=== PATIENT | female | born 1985 | race African-American/Black ===

== ENCOUNTER 2021-11-29 09:44 | Outpatient (REF) | payer OTHER, SELFPAY ==
[2021-11-29 10:25] LABS: Binax Internal Control QC Valid; Binax Now Covid-19 Ag Negative (Negative); Binax Performed by: HO.TORG
== END 2021-11-29 09:45 | disposition home or self-care (01) ==
LOC: HO.HMGCLDS 09:44
PROVIDERS: Visit Provider Internal Medicine
DX: Z13.89 Encounter for screening for other disorder (principal)

== ENCOUNTER 2023-10-11 08:17 | Outpatient (AMB) | payer OTHER, SELFPAY ==
--- NOTE | 2023-10-11 08:23 | MHC.PC.OV ---
Vital Signs 10/11/23 08:35 Height 5 ft 4 in Weight 180 lb BMI 30.9 BP 128/82 Blood Pressure Location Lt brachial Position Sitting Respiration 12 Pulse 89 Pulse Source Pulse Oximeter Temp 97.2 F Temp Source Temporal Artery Scan Pulse Oximetry (%) 98 Oxygen Delivery Method Room Air Intake Visit Reasons: Transfer of care from ( medications) Intake Note: Patient is here for transfer of care from to . Patient reports she had a question regarding her blood pressure medication and patient wonders if medication dose is high enough. Patient reports she does not feel stressed during her normal day, although her job is stressful-which patient reports comes with the territory. Patient requests medication refills on her current medications. Medical Reception Specialist Required: No Accompanied by: Self / Same As Patient Allergies lisinopril Allergy (Intermediate, Verified 10/11/23 08:33) Facial Swelling betadine Allergy (Intermediate, Uncoded 10/11/23 08:33) Itching Tobacco use date assessed: 10/11/23 Dental Screening Dental Screen Date: 10/11/23 Did you have a dental visit in the last 12 months?: Yes Was dental information given to patient?: Patient has dentist HPI Transfer of care from ( medications) HPI Details Transfer of Care Prior PCP:? Acute issue(s): Hypertension -Is on losartan-HCTZ 50-12.5mg daily. -Notes blood pressure fluctuates. She has been watching the salt in her diet. She feels like she sleeps well. PMHx: HTN, Migraines SurgHx: h/o abdominoplasty FHx: Mom: HTN, DM. pGM: Breast CA. SocHx: Nonsmoker. EtOH none. No drugs. PFSH Medical History Migraines Fatty liver Hypertension Surgical History H/O abdominoplasty Social History Household Members: Spouse and Children Caregiver staying overnight: No Housing: House Are you a primary patient care manager to a significant other at home: No Do you presently have visiting nurse or other home services: No 75 years or older and lives alone: No Alcohol intake: never Patient Tobacco Use Status: Never used Tobacco e-Cigarette/Vaping Use: Never Used service: Yes ([employer] ) Current occupational status: employed Sexual orientation: Straight/Heterosexual Gender identity: Female Cognitive needs: No Hearing needs: No Vision needs: No Questionnaire PHQ-9 Over the last 2 weeks, how often have you been bothered by any of the following problems? 1. Little interest or pleasure in doing things: not at all 2. Feeling down, depressed, or hopeless: not at all 3. Trouble falling or staying asleep, or sleeping too much: not at all 4. Feeling tired or having little energy: not at all 5. Poor appetite or overeating: not at all 6. Feeling bad about yourself - or that you are a failure or have let yourself or your family down: not at all 7. Trouble concentrating on things, such as reading the newspaper or watching television: not at all 8. Moving or speaking so slowly that other people could have noticed. Or the opposite - being so fidgety or restless that you have been moving around a lot more than usual: not at all 9. Thoughts that you would be better off or of hurting yourself in some way: not at all Total score: 0 Depression Screening Interpretation: Negative Depression Screening Done: Yes 98969 - PHQ-9 Billing: Yes Source: Developed by Drs. Lamont Olguin, Johanna Soto, Tang Ríos and colleagues, with an educational jewel from [employer]. Thrive Questionnaire Date Thrive assessed: 10/11/23 I am a: Patient What is your living situation today?: I have a steady place to live Within the past 12 months, did the food you bought not last and you didn't have the money to get more?: Never true Within the past 12 months, did you worry whether your food would run out before you got money to buy more?: Never true Do you have trouble paying for medicines?: No Do you have trouble getting transportation to medical appointments?: No Do you have trouble paying your heating and electricity bill?: No Do you have trouble taking care of your child, family member or friend?: No Do you have trouble with day-to-day activities such as bathing, preparing meals, shopping, managing finances, etc.?: No Are you currently unemployed and looking for a job?: No Are you interested in more education?: No Please select the resources that you would like help with: None Currently or been in a relationship where the following occur: no concerns reported THRIVE Score: 0 AUDIT C Alcohol Use Questionnaire (AUDIT-C) 1. How often do you have a drink containing alcohol?: Never 3. How often do you have six or more drinks on one occasion?: Never Total Score: 0 DONAVAN-7 AMB Questionnaire DONAVAN-7 Date DONAVAN - 7 assessed: 10/11/23 Feeling nervous, anxious, or on edge: 0 = Not at all Not being able to stop or control worryin = Not at all Worrying too much about different things: 0 = Not at all Trouble relaxin = Not at all Being so restless that it is hard to sit still: 0 = Not at all Becoming easily annoyed or irritable: 0 = Not at all Feeling afraid as if something awful might happen: 0 = Not at all Total DONAVAN-7 score (0-4 normal; 5-9 mild; 10-14 moderate; 15-21 severe): 0 Source: Developed by Drs. Lamont Olguin, Johanna Soto, Tang Ríos and colleagues, with an educational jewel from [employer]. DONAVAN-7 Assessment Billing DONAVAN-7 Assessment Tool: DONAVAN-7 Assessment 68961 Review of Systems Const Denies chills, Denies fatigue, Denies fever(s), Denies headache(s) and Denies weakness ENT Denies dizziness and Denies headache(s) Card Denies chest pain, Denies lightheadedness, Denies dyspnea and Denies other (Palpitations) Resp Denies cough, Denies dyspnea, Denies wheezing and Denies other ( shortness of breath) Musc Denies numbness and Denies tingling Neuro Denies dizziness, Denies headache(s), Denies numbness, Denies tingling, Denies paresthesias and Denies weakness Psych Denies anxiety and Denies depression Endo Denies fatigue Aller/Immun Denies wheezing Physical exam (Primary Care) Vital Signs: Last Vital Signs Temp 97.2 F 10/11/23 08:35 Pulse 89 10/11/23 08:35 Resp 12 10/11/23 08:35 BP 128/82 10/11/23 08:35 Pulse Ox 98 10/11/23 08:35 Oxygen Delivery Method Room Air 10/11/23 08:35 BMI result Body Mass Index 30.9 Tobacco/Smoking Status: Tobacco use Status Tobacco use date assessed 10/11/23 10/11/23 08:35 Patient Tobacco Use Status Never used Tobacco 10/11/23 08:37 e-Cigarette/Vaping Use Never Used 10/11/23 08:37 PHQ-9: PHQ-9 Score PHQ-9: Total score 0 10/11/23 08:45 Depression Screening Interpretation: Negative Thrive Assessment: Date of Thrive Assessment Date Thrive assessed 10/11/23 10/11/23 08:39 Currently or been in a relationship where the following occur: no concerns reported Const General: no acute distress and well developed Nutritional Appearance: well nourished Orientation/consciousness: patient oriented x3 HENMT Head: Yes normocephalic and Yes atraumatic Eyes General: appearance normal, both eyes and all related structures Pupils: Equal, round and reactive pupils present EOM: EOMs intact bilaterally Resp Effort & Inspection: normal respiratory effort Auscultation: clear to auscultation bilaterally Cardio Rate: regular rate Rhythm: regular rhythm Heart sounds: S1 normal heart sound present, S2 normal heart sound present, no gallops, no murmurs and no rubs Neuro General: patient oriented x3 and gait normal Cranial nerves: Yes Equal, round and reactive pupils present Psych Affect: normal affect Assessment and Plan Assessment & Plan (1) Hypertension: Code(s): I10 - Essential (primary) hypertension Plan: Blood?pressure?appears?controlled?today?but?she?notes?fluctuations?with?elevated?diastolic?blood?pressures?at?times.??Also?some?low?systolic?blood?pressures. She?can?take?her?losartan?hydrochlorothiazide?twice?a?day?when?blood?pressures?are?high.??Otherwise?will?take?daily. Hold?2nd?dose?for?SBP?less?than?110 (2) Migraines: Code(s): G43.909 - Migraine, unspecified, not intractable, without status migrainosus Plan: Continue?ergotamine-caffeine (3) Laboratory exam ordered as part of routine general medical examination: Code(s): Z00.00 - Encounter for general adult medical examination without abnormal findings Plan: Check?labs Medications: Changed From losartan-hydrochlorothiazide 50-12.5 mg 1 tab PO DAILY 30 tabs 3RF To losartan-hydrochlorothiazide 50-12.5 mg May hold second tab for SBP < 110 1 tab PO BID 90 days 180 tabs 3RF Refilled ergotamine-caffeine 1-100 mg take 2 tablets at onset of headache; if no relief, may repeat 1 tablet after at least 2 hrs; max = 3 tabs/24 hrs PO 30 tabs 2RF G43.909 - Migraine, unspecified, not intractable, without status migrainosus Coding Level of Care Code Est Pt Level 3 (63843) Diagnoses Hypertension I10 Migraines G43.909 Laboratory exam ordered as part of routine general medical examination Z00.00 Additional Codes DONAVAN-7 Assessment Billing - DONAVAN-7 Assessment Tool: DONAVAN-7 Assessment [id number] ([id number])
[2023-10-11 08:35] VITALS: BP 128/82; PULSE 89; RESP 12; TEMP 36.2; O2SAT 98; BMI 30.9
== END 2023-10-11 09:13 | disposition home or self-care (01) ==
PROVIDERS: PCP Family Medicine; Visit Provider Family Medicine
DX: I10 Essential (primary) hypertension (principal); G43.909 Migraine, unspecified, not intractable, without status migrainosus; Z00.00 Encounter for general adult medical examination without abnormal findings
CPT/HCPCS: 99213

== ENCOUNTER 2023-10-19 08:06 | Outpatient (REF) | payer OTHER, SELFPAY ==
[2023-10-19 11:39] LABS: Hemoglobin 12.8 g/dl (12.0-16.0); Mean Corpuscular HGB Conc 32.8 g/dl (31.0-35.0); Mean Corpuscular Hemoglobin 28.8 pg (27.0-33.0); Mean Corpuscular Volume 87.8 fL (80.0-98.0); Mean Platelet Volume 9.6 fL (9.4-12.3); Platelet Count 354 X10*3/uL (160-400); Red Blood Count 4.44 X10*6/uL (4.20-5.50); Red Cell Distribution Width 13.2 % (11.0-16.0); White Blood Count 6.8 X10*3/uL (4.8-10.8)
[2023-10-19 12:17] LABS: Alanine Aminotransferase 12 U/L (0-31); Albumin Level 4.4 g/dL (3.5-5.0); Alkaline Phosphatase 73 U/L (39-117); Anion Gap 13 (12-20); Aspartate Amino Transferase 13 U/L (5-31); Bilirubin Total 0.8 mg/dL (0.0-1.0); Blood Urea Nitrogen 10 mg/dL (9-16); Calcium 9.8 mg/dL (8.4-10.2); Carbon Dioxide 25 mmol/L (22-29); Chloride 105 mmol/L (96-108); Cholesterol 184 mg/dL (<200); Estimated Glomerular Filt Rate > 60; Glucose Fasting 80 mg/dL (60-99); HDL Cholesterol 42 mg/dL (>40); LDL Cholesterol Calculated 123 mg/dL (<100); Potassium 3.9 mmol/L (3.3-5.1); Sodium 139 mmol/L (135-145); Triglycerides 96 mg/dL (<150)
[2023-10-19 12:34] LABS: TSH reflex Free T4 1.13 uIU/mL (0.32-4.0)
== END 2023-10-19 08:07 | disposition home or self-care (01) ==
LOC: HO.WFDLDS 08:06
PROVIDERS: Visit Provider Hospitalist
DX: I10 Essential (primary) hypertension (principal)
CPT/HCPCS: 36415; 80053; 80061; 84443; 85027

== ENCOUNTER 2024-02-26 11:40 | Outpatient (AMB) | payer OTHER, SELFPAY ==
--- NOTE | 2024-02-26 12:06 | A.OFFPC_ITS ---
Vital Signs 02/26/24 12:08 Height 5 ft 4 in Weight 179 lb 4 oz BMI 30.8 BP 128/70 Blood Pressure Location Lt brachial Position Sitting Pulse 80 Pulse Source Pulse Oximeter Pulse Oximetry (%) 98 Oxygen Delivery Method Room Air Intake Visit Reasons: CPE with f/u labs and health maint. Intake Note: Patient is here for her physical follow up on labs and health maintenance. Allergies lisinopril Allergy (Intermediate, Verified 02/26/24 12:10) Facial Swelling betadine Allergy (Intermediate, Uncoded 02/26/24 12:10) Itching Medication List - Last Reconciled 02/26/24 by Xavier Dillard MD ergotamine-caffeine 1-100 mg take 2 tablets at onset of headache; if no relief, may repeat 1 tablet after at least 2 hrs; max = 3 tabs/24 hrs PO losartan-hydrochlorothiazide 50-12.5 mg 1 tab PO BID 90 days Tobacco use date assessed: 02/26/24 Dental Screening Dental Screen Date: 10/11/23 HPI CPE with f/u labs and health maint. HPI Details 38 y/o female presents for a CPE with f/ u labs and health maintenance. Labs were drawn 10/19/23. Reviewed labs with pt. Triglycerides 96. TC 184. LDL 123. HDL 42. Blood pressure today 128/70. She is on losartan-HCTZ 50-12.5mg b.i.d. She has complaints of ankle pain. She has complaints of GERD. [facility] Medical History Migraines Fatty liver Hypertension Surgical History H/O abdominoplasty Social History Household Members: Spouse and Children Caregiver staying overnight: No Housing: House Are you a primary respiratory care faculty to a significant other at home: No Do you presently have visiting nurse or other home services: No 75 years or older and lives alone: No Alcohol intake: never Patient Tobacco Use Status: Never used Tobacco e-Cigarette/Vaping Use: Never Used service: Yes ([employer] ) Current occupational status: employed Sexual orientation: Straight/Heterosexual Gender identity: Female Cognitive needs: No Hearing needs: No Vision needs: No Questionnaire Thrive Questionnaire Date Thrive assessed: 10/11/23 DONAVAN-7 AMB Questionnaire DONAVAN-7 Date DONAVAN - 7 assessed: 10/11/23 Source: Developed by Drs. Lamont Olguin, Johanna Soto, Tang Ríos and colleagues, with an educational jewel from [employer]. Review of Systems Const Denies chills, Denies fatigue, Denies fever(s), Denies headache(s) and Denies weakness Eyes Denies change in vision ENT Denies dizziness, Denies headache(s), Denies hearing loss, Denies nasal congestion, Denies sinus pain, Denies sinus pressure and Denies sore throat Card Denies chest pain, Denies lightheadedness, Denies dyspnea and Denies other (palpitations) Resp Denies cough, Denies dyspnea and Denies wheezing GI Denies abdominal pain, Denies melena, Denies hematochezia, Denies change in bowel habits, Denies dyspepsia and Denies nausea Denies hematuria and Denies dysuria Musc Denies abnormal gait, Denies myalgias, Denies arthralgias, Denies numbness and Denies tingling Skin/Breast Denies rash, Denies unusual bruising and Denies wounds Neuro Denies abnormal gait, Denies dizziness, Denies headache(s), Denies memory loss, Denies numbness, Denies Sensory deficit (Neuro), Denies tingling and Denies weakness Psych Denies anxiety, Denies depression and Denies memory loss Endo Denies cold intolerance, Denies fatigue, Denies heat intolerance, Denies polydipsia and Denies polyuria Nate/Lymph Denies easy bleeding and Denies easy bruising Aller/Immun Denies wheezing Physical exam (Primary Care) Vital Signs: Last Vital Signs Pulse 80 02/26/24 12:08 BP 128/70 02/26/24 12:08 Pulse Ox 98 02/26/24 12:08 Oxygen Delivery Method Room Air 02/26/24 12:08 BMI result Body Mass Index 30.8 Tobacco/Smoking Status: Tobacco use Status Tobacco use date assessed 02/26/24 02/26/24 12:11 Patient Tobacco Use Status Never used Tobacco 02/26/24 12:07 e-Cigarette/Vaping Use Never Used 02/26/24 12:07 Thrive Assessment: Date of Thrive Assessment Date Thrive assessed 10/11/23 02/26/24 12:07 Const General: no acute distress, well developed, alert and awake Nutritional Appearance: well nourished Orientation/consciousness: patient oriented x3 HENMT Head: Yes normocephalic and Yes atraumatic Ears: hearing grossly normal bilaterally and TM's normal bilaterally General nose exam: Normal external nose present and Normal nares present Mouth: Normal oral and palatal mucosa present and moist mucous membranes Teeth and gingiva: dentition normal Throat: Yes posterior oropharynx normal Eyes General: appearance normal, both eyes and all related structures Pupils: Equal, round and reactive pupils present and Pupil accommodation reflex normal EOM: EOMs intact bilaterally Neck Neck: Yes normal visual inspection, Yes no lymphadenopathy and Yes trachea midline Thyroid: Thyroid normal Carotids: no bruits Lymphatic: no lymphadenopathy noted Chest Chest palpation & inspection: normal inspection of the chest Resp Effort & Inspection: normal respiratory effort Auscultation: clear to auscultation bilaterally Cardio Rate: regular rate Rhythm: regular rhythm Heart sounds: S1 normal heart sound present, S2 normal heart sound present, no gallops, no murmurs and no rubs Bruits: no abdominal aortic bruits and no carotid bruits GI Palpation (GI): No Abdominal aortic bruit present, Soft to palpation, nontender, No hepatosplenomegaly present and No Rebound tenderness present Auscultation: normal bowel sounds General: Yes no CVA tenderness Back/Spine/Pelvis Back: no CVA tenderness Cervical Spine: cervical ROM normal and No Cervical spine tenderness Thoracic/Lumbar Spine: thoraco-lumbar ROM normal, No pain with thoraco-lumbar ROM, No thoracic spinal tenderness and No lumbar spinal tenderness Skin Lesions: no lesions Rashes: no rashes Trauma: no lacerations or abrasions Wounds: no wounds Nails: normal Neuro General: patient oriented x3 Cranial nerves: Yes Equal, round and reactive pupils present Cognition (Neuro): normal cognition Gait exam (Neuro): Normal gait present Motor exam (neuro): 5/5 motor strength present throughout Sensory Exam: No Sensory deficit (Neuro) Deep tendon reflexes (DTR's): Right patellar reflex intensity grade: 2+ and Left patellar reflex intensity grade: 2+ Extrem General: Yes normal to inspection and No edema Psych Appearance: grossly normal Affect: normal affect Attitude: cooperative Thought process: Normal thought process present Assessment and Plan Assessment & Plan (1) Adult general medical exam: Code(s): Z00.00 - Encounter for general adult medical examination without abnormal findings Plan: 38-year-old?female?presents?for?complete?physical?exam Encouraged?healthy?diet?with?active?lifestyle?and?plenty?of?exercise (2) Hypertension: Code(s): I10 - Essential (primary) hypertension Plan: Blood?pressure?is?controlled.??Goal?is?less?than?140/90 Continue?current?medication (3) Hypercholesterolemia: Code(s): E78.00 - Pure hypercholesterolemia, unspecified Plan: LDL?cholesterol?is?above?goal?of?less?than?100 Encouraged?a?diet?lower?in?saturated?fats?and?cholesterol Will?follow-up?in?a?few?months (4) Screening for cervical cancer: Code(s): Z12.4 - Encounter for screening for malignant neoplasm of cervix Plan: Referred?to?learning services coordinator?for?Pap?smears (5) GERD (gastroesophageal reflux disease): Code(s): K21.9 - Gastro-esophageal reflux disease without esophagitis Plan: Symptoms?about?once?a?week She?can?trial?Nexium?daily.??She?has?been?taking?this?when?she?has?symptoms. Referred?to?GI (6) Ankle pain: Code(s): M25.579 - Pain in unspecified ankle and joints of unspecified foot Plan: Right?ankle?pain?and?swelling,?likely?secondary?to??combat?boots?use Take?boots?off?immediately?after?work?and?elevate?feet?and?use?ice If?not?improving?will?write?a?letter?to?request?that?patient?be?allowed?to?use?o ther?foot?gear. (7) Breast cancer screening by mammogram: Code(s): Z12.31 - Encounter for screening mammogram for malignant neoplasm of breast Plan: Strong?family?history?of?breast?cancer?and?fibrocystic?breasts. She?has?already?begun?mammographic?screening?and?is?due?so?I?have?ordered?her?ma mmogram. Orders: Orders MM tomosynthesis screening BI Today N60.19 - Diffuse cystic mastopathy of unspecified breast, Z12.31 - Encounter for screening mammogram for malignant neoplasm of breast, Z80.3 - Family history of malignant neoplasm of breast Referrals [employer] Referral Z12.4 - Encounter for screening for malignant neoplasm of cervix Gastroenterology Referral K21.9 - Gastro-esophageal reflux disease without esophagitis Medications: New esomeprazole magnesium 20 mg PO DAILY 30 days 30 caps 1RF Coding Level of Care Code Est Pt Level 3 (69544) Est Pt Prev Care 18-39y([id number]) Diagnoses Adult general medical exam Z00.00 Hypertension I10 Hypercholesterolemia E78.00 Screening for cervical cancer Z12.4 GERD (gastroesophageal reflux disease) K21.9 Ankle pain M25.579 Breast cancer screening by mammogram Z12.31
[2024-02-26 12:08] VITALS: BP 128/70; PULSE 80; O2SAT 98; BMI 30.8
== END 2024-02-26 12:46 | disposition home or self-care (01) ==
PROVIDERS: PCP Family Medicine; Visit Provider Family Medicine
DX: Z00.00 Encounter for general adult medical examination without abnormal findings (principal); Z12.31 Encounter for screening mammogram for malignant neoplasm of breast; K21.9 Gastro-esophageal reflux disease without esophagitis; I10 Essential (primary) hypertension; E78.00 Pure hypercholesterolemia, unspecified; M25.571 Pain in right ankle and joints of right foot
CPT/HCPCS: 99213; 99395

== ENCOUNTER 2024-03-04 09:28 | Outpatient (REF) | payer OTHER, SELFPAY ==
--- NOTE | ~2024-03-04 | MM_ITS ---
EXAMINATION: MM SCREENING DIGITAL BREAST TOMOSYNTHESIS, BILATERAL CLINICAL INFORMATION: Screening. Asymptomatic. COMPARISON: Mammography: This study is compared with prior breast imaging from 2020. TECHNIQUE: Digital mammography is performed in craniocaudal and mediolateral oblique views along with computer-aided detection (CAD). Digital breast tomosynthesis is performed in implant-displaced craniocaudal and implant-displaced mediolateral oblique views along with computer-aided detection (CAD). Synthesized 2D images are generated from the tomosynthesis. FINDINGS: The breasts are heterogeneously dense, which may obscure small masses (ACR BI-RADS breast composition Category c). There are bilateral, mammographically intact, retropectoral silicone breast implants. The patient's breast implants and new since the last mammogram from 2020. There are grouped calcifications in the upper outer quadrant of the deep third of the left breast. There are also grouped calcifications in the medial aspect of the left breast in the CC projection. These warrant additional mammographic imaging with magnification. There is an asymmetry in the medial aspect of the left breast, separate from the area of calcifications. This area warrants additional mammographic and targeted sonographic imaging. In the right breast, there are no significant masses, abnormal calcifications, or other abnormalities. MM/MM tomosynthesis screen imp BI IMPRESSION: 2 areas of grouped calcification and an asymmetry of the left breast warrants additional mammographic imaging. Magnification imaging of the calcifications as indicated. Spot compression and ultrasound of the asymmetry is indicated. No mammographic signs of malignancy right breast. ASSESSMENT: BI-RADS BI-RADS 0 - Incomplete: Needs additional Imaging. RECOMMENDATION: 1. Additional views of the left breast. 2. Targeted ultrasound of the medial aspect of the left breast. 3. Radiology department staff will contact the patient for additional imaging. Additional Imaging required This patient's information was entered into a reminder system with a target due date for their next mammogram.
== END 2024-03-04 09:29 | disposition home or self-care (01) ==
LOC: HO.MAMMO 09:28
PROVIDERS: PCP Family Medicine; Visit Provider Family Medicine
DX: Z12.31 Encounter for screening mammogram for malignant neoplasm of breast (principal)
CPT/HCPCS: 77063; 77067

== ENCOUNTER → 2024-03-04 09:45 | Outpatient (BNV) | payer OTHER, SELFPAY | PROVIDERS: PCP Family Medicine; Visit Provider Radiology Diagnostic Radiology | DX: Z12.31 Encounter for screening mammogram for malignant neoplasm of breast (principal) | CPT/HCPCS: 77063; 77067 ==

== ENCOUNTER 2024-04-08 10:33 | Outpatient (REF) | payer OTHER, SELFPAY ==
[2024-04-09 03:29] LABS: CT PCR NOT DETECTED (Not Detect.); NG PCR NOT DETECTED (Not Detect.)
[2024-04-09 10:31] LABS: Bacterial Vaginosis PCR POSITIVE (Negative); Candida Group PCR NOT DETECTED (Not Detect); Candida glab krusei PCR NOT DETECTED (Not Detect); Trichomonas vaginalis PCR DETECTED (Not Detect)
[2024-04-11 14:58] LABS: HPV mRNA E6/E7 Not Detected (Not Detected)
== END 2024-04-08 10:34 | disposition home or self-care (01) ==
LOC: HO.LAB 10:33
PROVIDERS: PCP Family Medicine; Visit Provider Advanced Practice Midwife
DX: Z01.419 Encounter for gynecological examination (general) (routine) without abnormal findings (principal); Z11.51 Encounter for screening for human papillomavirus (HPV); Z20.2 Contact with and (suspected) exposure to infections with a predominantly sexual mode of transmission; N89.8 Other specified noninflammatory disorders of vagina
CPT/HCPCS: 0352U; 36415; 87491; 87591; 87624; 88175

== ENCOUNTER 2024-04-08 10:33 | Outpatient (AMB) | payer OTHER, SELFPAY ==
--- NOTE | 2024-04-08 10:53 | MHC.OFFVIS ---
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: Senior Data Integration Developer Present Allergies lisinopril Allergy (Intermediate, Verified 04/08/24 10:56) Facial Swelling betadine Allergy (Intermediate, Uncoded 04/08/24 10:56) Itching Medication List - Last Reconciled 04/08/24 by Mary Renner CNM ergotamine-caffeine 1-100 mg take 2 tablets at onset of headache; if no relief, may repeat 1 tablet after at least 2 hrs; max = 3 tabs/24 hrs PO esomeprazole magnesium 20 mg PO DAILY 30 days losartan-hydrochlorothiazide 50-12.5 mg 1 tab PO BID 90 days Is last menstrual period known: No (irregular menses) Do you need a note to return to daycare/school/sports/work: No HPI 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 She has a number of concerns. She had not been sexually active a while and has been very sexually active in the last 3 months but each time she has intercourse, with her female partner she bleeds after intercourse for some days it starts out bright red and continues on. She cites regular periods but it is getting hard to tell what is a period in what is the irregular bleeding. In addition about 3 or 4 months ago she had an episode of severe vaginal pelvic pain that stops her in her tracks completely and she had had this a couple of other times in her life. She had 3 vaginal births the last 1 was complicated by acute fatty liver disease of for which she was induced and was in ICU for 5 days afterwards and then was discharged she said that after that she needed to go for lots of testing but she got better after the delivery she said that it they had thought it was gestational diabetes or preeclampsia but it was not. She is interested with her female partner in potentially having a another child through IVF and wonders where she would go. She is in the and maybe elsewhere next year She gets early screenings because a family history of breast cancer and has been going for regular screenings and will be going for a follow-up mammogram soon as she has been called back for more testing. She recently had full blood work for STIs through the and also with her primary. She has been having an abnormal discharge for a while. She has a history of a mommy make over plastic surgery and she also had breast lifts placed. She did have an infection after the abdominal plasty so she has an extra scar from that as well. [facility] Medical History Migraines Fatty liver Hypertension Surgical History H/O abdominoplasty Social History Household Members: Spouse and Children Caregiver staying overnight: No Housing: House Are you a primary direct care provider to a significant other at home: No Do you presently have visiting nurse or other home services: No 75 years or older and lives alone: No Alcohol intake: never Patient Tobacco Use Status: Never used Tobacco e-Cigarette/Vaping Use: Never Used service: Yes ([employer] ) Current occupational status: employed Sexual orientation: Straight/Heterosexual Gender identity: Female Cognitive needs: No Hearing needs: No Vision needs: No Female Reproductive History Menstrual Age of Menarche: 15 Duration of menses: other control method: none Total pregnancies: 5 Full term: 3 History of abnormal pap smear: No (previous pap ,4 yrs ago,negative,per patient) Physical Exam Vital Signs: Last Vital Signs BP 126/70 04/08/24 10:54 BMI result Body Mass Index 32.1 Const Other: Scars from breast surgery and abdominal plasty and vertical scar from postop infection General: healthy appearing, comfortable, no acute distress, well developed and alert Nutritional Appearance: average body habitus Orientation/consciousness: patient oriented x3 Limitations: no limitations HEENT Head: Yes normocephalic Neck Neck: Yes normal visual inspection Chest Chest palpation & inspection: normal inspection of the chest Breast/axilla inspection: normal inspection of the breasts and normal inspection of the axillae Breast/axilla palpation: normal palpation of the breasts and normal palpation of the axillae Resp Effort & Inspection: normal respiratory effort GI Inspection: Yes normal to inspection, No Abdominal wall edema and No distended Palpation (GI): Soft to palpation and nontender Other: Normal external exam vagina pink and moist there is a copious malodorous creamy colored liquidy discharge. Cervix is multiparous slightly friable with Pap smear and cultures. Cervix mobile midposition nontender uterus difficult to feel secondary to overlying abdominal scar tissue adnexa nontender good tone with Kegel. General: Yes bladder normal to palpation External Female Exam: normal external appearance and normal appearance of the urethra Speculum Exam - Vagina: normal appearance of the vagina, normal palpation, vaginal discharge abnormal and abnormal vaginal discharge Speculum Exam - Cervix: normal appearance of the cervix, normal palpation and nontender Bimanual exam- vagina & uterus: normal bimanual exam, normal palpation, uterine size normal, bladder normal to palpation, consistency normal, normal palpation, uterine mobility normal, uterine shape normal, No Cervical tenderness present, non-tender and no cervical motion tenderness Bimanual Exam- Adnexa, other: normal adnexae, no masses, normal and No adnexal tenderness Neuro General: patient oriented x3 Assessment & Plan Assessment & Plan (1) Fatty liver: Comment: History of acute fatty liver disease of with last was in ICU for 5 days pp. Code(s): K76.0 - Fatty (change of) liver, not elsewhere classified Category: Medical (2) Screening for cervical cancer: Code(s): Z12.4 - Encounter for screening for malignant neoplasm of cervix Category: Medical (3) Pelvic pain: Comment: Periodic random sharp severe pelvic pain, last time four months ago Code(s): R10.2 - Pelvic and perineal pain Category: Medical (4) Bleeding after intercourse: Code(s): N93.0 - Postcoital and contact bleeding Category: Medical (5) Problematic vaginal discharge: Code(s): N89.8 - Other specified noninflammatory disorders of vagina Category: Medical (6) Possible exposure to STD: Code(s): Z20.2 - Contact with and (suspected) exposure to infections with a predominantly sexual mode of transmission Category: Medical Plan -----Discussed in this visit the following: healthy balanced diet, regular and consistent exercise, getting recommended health screens, doing the best she can for her particular health concerns, kegel exercises, pap smear screening and followup recommendations, mammography screening and SBE, normal changes in cycles in her life stage--- . Reviewed many of her concerns we will have to wait to see what test results show to consider what treatment might be necessary for the vaginal discharge if it is an STI that needs to be treated and partners need treated as well. If it turns out it is only bacterial vaginosis I would recommend to her and I shared that I believe she should treat it with metronidazole pills as it is quite substantial . ---I am ordering a pelvic ultrasound which in essence as a snap shot time and may or may not show any thing going on with her ovaries or any other pelvic structures. Reviewed that possibilities for her random somewhat distant pains could have been either pain with ovulation which can be severe for some women or potentially a ruptured ovarian cyst and there may be no evidence of it anymore at this point. Recommend to her that she keep very close track her cycles and the timing of any future pain to help figure out what it might be if it recurs. For future consideration if she were to seek care in that direction it would need to be through the [facility] IVF what she has heard of. Additionally she should have a full discussion about her past medical obstetrical history of the acute fatty liver disease of because she would be at risk and would need close monitoring in a future . She is getting her mammogram follow-up through her primary care and whoever he has referred her to and will be having follow-up mammography studies soon I will see her again after the pelvic ultrasound. She is on the portal and so she may be able to see results for any of the STI testing before I do in which case if she sees something she may call and speak with the nurse. Treatment be ordered accordingly. Orders: Orders US pelvic and transvaginal Today K76.0 - Fatty (change of) liver, not elsewhere classified, N89.8 - Other specified noninflammatory disorders of vagina, N93.0 - Postcoital and contact bleeding, R10.2 - Pelvic and perineal pain, Z12.4 - Encounter for screening for malignant neoplasm of cervix, Z20.2 - Contact with and (suspected) exposure to infections with a predominantly sexual mode of transmission Coding Level of Care Code New Pt Prev Care 18-39yr(39324 Diagnoses Fatty liver K76.0 Screening for cervical cancer Z12.4 Pelvic pain R10.2 Bleeding after intercourse N93.0 Problematic vaginal discharge N89.8 Possible exposure to STD Z20.2
[2024-04-08 10:54] VITALS: BP 126/70; BMI 32.1
== END 2024-04-08 12:26 | disposition home or self-care (01) ==
LOC: HO.HWSM 10:33
PROVIDERS: PCP Family Medicine; Visit Provider Advanced Practice Midwife
DX: Z01.419 Encounter for gynecological examination (general) (routine) without abnormal findings (principal); K76.0 Fatty (change of) liver, not elsewhere classified; R10.2 Pelvic and perineal pain; N93.0 Postcoital and contact bleeding; N89.8 Other specified noninflammatory disorders of vagina; Z20.2 Contact with and (suspected) exposure to infections with a predominantly sexual mode of transmission
CPT/HCPCS: 99385

== ENCOUNTER 2024-04-16 11:12 | Outpatient (REF) | payer OTHER, SELFPAY ==
--- NOTE | ~2024-04-16 | US_ITS ---
EXAMINATION: US PELVIS CLINICAL INFORMATION: Postcoital bleeding, pelvic pain, currently menstruating, last menstrual period yesterday. COMPARISON: None available. TECHNIQUE: Ultrasound of the pelvis is performed using both transabdominal and transvaginal transducers along with Doppler. Transvaginal imaging is performed due to inadequate visualization transabdominally. FINDINGS: The uterus is anteverted and measures 9.9 x 5.3 x 5.5 cm. 1.5 x 1.6 x 1.4 cm and 0.7 x 0.7 x 0.5 cm uterine masses are characteristic of fibroids. No significant free fluid. Endometrial thickness is 9 mm. Right ovary measures 2.4 x 2.0 x 1.4 cm, volume 3.5 mL. Left ovary measures 1.9 x 1.2 x 2.1 cm, volume 2.5 mL. Bilateral ovaries are unremarkable. US/US pelvic and transvaginal IMPRESSION: Uterine masses characteristic of fibroids. Endometrial thickness is 9 mm. Electronically signed by: Tamar Damon MD 04/23/2024 03:47 PM EDT
== END 2024-04-16 11:13 | disposition home or self-care (01) ==
LOC: HO.US 11:12
PROVIDERS: PCP Family Medicine; Visit Provider Advanced Practice Midwife
DX: R10.2 Pelvic and perineal pain (principal); N93.0 Postcoital and contact bleeding; N89.8 Other specified noninflammatory disorders of vagina; Z20.2 Contact with and (suspected) exposure to infections with a predominantly sexual mode of transmission; K76.0 Fatty (change of) liver, not elsewhere classified
CPT/HCPCS: 76830; 76856

== ENCOUNTER 2024-05-01 14:50 | Outpatient (REF) | payer OTHER, SELFPAY ==
--- NOTE | ~2024-05-01 | MM_ITS ---
EXAMINATION: MM DIAGNOSTIC DIGITAL BREAST TOMOSYNTHESIS, LEFT US BREAST LIMITED, LEFT MAMMOGRAPHY: CLINICAL INFORMATION: Diagnostic exam: Follow-up from screening exam for grouped calcifications upper outer quadrant, deep third left breast, possible grouped calcifications in the medial aspect left breast on the CC projection, and a one-year asymmetry in the medial aspect of the left breast, separate from the area of calcifications. Patient has bilateral retropectoral silicone implants. COMPARISON: Mammography: 03/04/2024, 03/02/2021 ([facility]) TECHNIQUE: Digital left breast tomosynthesis is performed in the following views: 3-D spot compression left CC view x1, and 2-D spot magnification left CC x2 and left mL x1 views. FINDINGS: The breasts are heterogeneously dense, which may obscure small masses (ACR BI-RADS breast composition Category c). -Spot magnification views of calcifications in the far medial left breast posterior one third seen on the implant displaced spot compression CC view demonstrate 2-3 punctate calcifications, without linear, branching, or suspicious forms. These do not need biopsy threshold. These are benign. No further follow-up recommended. -Spot magnification views of calcifications in the far lateral and upper left breast seen on implant displaced 2-D views demonstrate a small group of somewhat coarse calcifications associated with a underlying small density, possibly a fibroadenoma. There is mild pleomorphism, however there are no linear or branching forms, and the overall appearance is favored to be benign. Six-month follow-up recommended. -The 1 view asymmetry in the medial CC implant displaced view, mid depth, demonstrates a lentiform-appearing small asymmetry with foci of internal fat attenuation, measuring approximately 8 x 5 mm, suggesting a benign entity such as a parenchymal island or more likely a focus of scarring from implant surgery. We will evaluate this region with ultrasound to ensure no underlying suspicious abnormality. ULTRASOUND: CLINICAL INFORMATION: Evaluate asymmetry far medial left breast on implant displaced CC view, mid one third, probably benign scarring. This localizes inferiorly on tomography. COMPARISON: None relevant. TECHNIQUE: Targeted sonographic evaluation left breast was performed using a high frequency linear transducer. Selected archived documentation. FINDINGS: LEFT BREAST: There is heterogeneously dense underlying parenchymal tissue. No suspicious mass, area of abnormal shadowing, cystic abnormality, or architectural abnormality is identified in the medial inferior left breast. Only normal breast tissue is identified. No correlate to the index asymmetry as detailed above, which remains a probably benign focus of postoperative scarring. Six-month interval follow-up diagnostic left mammogram recommended to ensure stability, utilizing 3-D compression implant displaced CC and ML views of the medial inferior left breast quadrant. MM/MM tomosynthesis added views L IMPRESSION: -There are no findings in the LEFT breast suspicious for malignancy. -Asymmetry in the far medial inferior quadrant left breast on implant displaced CC view is probably benign, likely a focus of postoperative scarring, with no ultrasound correlate, has internal fat density and is probably benign finding. SIX-MONTH INTERVAL FOLLOW-UP DIAGNOSTIC LEFT MAMMOGRAM using 3-D compression implant displaced CC and ML views recommended. -Grouped calcifications in the upper outer left breast, posterior one third are probably benign. SIX-MONTH FOLLOW-UP LEFT BREAST MAGNIFICATION VIEWS recommended to ensure stability. -Microcalcifications in the far medial posterior left breast are benign. No further follow-up recommended. OVERALL ASSESSMENT: Mammography: BI-RADS 3 - Probably benign finding(s) - 6 month follow-up suggested Ultrasound: BI-RADS 3 - Probably benign finding(s) - 6 month follow-up suggested RECOMMENDATION: 6 Month F/U Findings were conveyed to the patient by the technologist at the time of the study. This patient's information was entered into a reminder system with a target due date for their next mammogram. Electronically signed by: Floyd Mauricio MD 05/02/2024 08:26 AM EDT
== END 2024-05-01 14:51 | disposition home or self-care (01) ==
LOC: HO.MAMMO 14:50
PROVIDERS: PCP Family Medicine; Visit Provider Family Medicine
DX: R92.1 Mammographic calcification found on diagnostic imaging of breast (principal)
CPT/HCPCS: 76642; 77061; 77065

== ENCOUNTER → 2024-05-01 15:00 | Outpatient (BNV) | payer OTHER, SELFPAY | PROVIDERS: PCP Family Medicine; Visit Provider Radiology Diagnostic Radiology | DX: R92.1 Mammographic calcification found on diagnostic imaging of breast (principal) | CPT/HCPCS: 76642; 77061; 77065 ==

== ENCOUNTER 2024-05-08 11:25 | Outpatient (AMB) | payer OTHER, SELFPAY ==
--- NOTE | 2024-05-08 11:27 | A.OFFVIS_ITS ---
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 She had had bleeding intercourse and some random pains previous to this. She took the medication for the trich and feels the discharge is better. She does not need control her partner's female they have an appointment at [facility] on the of them next month to talk about IVF both of them got treated for the infection. [facility] Medical History (Updated 05/08/24 @ 12:22 by Mary Renner CNM) Migraines Fatty liver Hypertension Surgical History H/O abdominoplasty Social History Household Members: Spouse and Children Caregiver staying overnight: No Housing: House Are you a primary healthcare economics consultant to a significant other at home: No Do you presently have visiting nurse or other home services: No 75 years or older and lives alone: No Alcohol intake: never Patient Tobacco Use Status: Never used Tobacco e-Cigarette/Vaping Use: Never Used Patient : No service: Yes ([employer] ) Current occupational status: employed Sexual orientation: Straight/Heterosexual Gender identity: Female Cognitive needs: No Hearing needs: No Vision needs: No Female Reproductive History Menstrual Age of Menarche: 15 Date of last menstrual period: 04/17/24 Physical Exam Vital Signs: Last Vital Signs BP 101/72 05/08/24 11:33 BMI result Body Mass Index 30.2 Other: Discharge is white liquidy appears within normal limits with luteal phase and recent ovulation. Cervix pink multiparous healthy-appearing. External Female Exam: normal external appearance and normal appearance of the urethra Speculum Exam - Vagina: normal appearance of the vagina and normal vaginal discharge Speculum Exam - Cervix: normal appearance of the cervix and Cervical os closed Results Reviewed Results Reviewed: Patient: Suzy Topete MR#: [id number] : 1985 Acct:[id number] Age/Sex: 39 / F ADM Date: 04/16/24 Loc: .US Attending Dr: Mary Renner CNM Ordering Physician: Mary Renner CNM Date of Service: 04/16/24 Procedure(s): US pelvic and transvaginal Accession Number(s): [id number] cc: Xavier Dillard MD; Mary Renner CNM~ EXAMINATION: US PELVIS CLINICAL INFORMATION: Postcoital bleeding, pelvic pain, currently menstruating, last menstrual period yesterday. COMPARISON: None available. TECHNIQUE: Ultrasound of the pelvis is performed using both transabdominal and transvaginal transducers along with Doppler. Transvaginal imaging is performed due to inadequate visualization transabdominally. FINDINGS: The uterus is anteverted and measures 9.9 x 5.3 x 5.5 cm. 1.5 x 1.6 x 1.4 cm and 0.7 x 0.7 x 0.5 cm uterine masses are characteristic of fibroids. No significant free fluid. Endometrial thickness is 9 mm. Right ovary measures 2.4 x 2.0 x 1.4 cm, volume 3.5 mL. Left ovary measures 1.9 x 1.2 x 2.1 cm, volume 2.5 mL. Bilateral ovaries are unremarkable. US/US pelvic and transvaginal IMPRESSION: Uterine masses characteristic of fibroids. Endometrial thickness is 9 mm. Electronically signed by: Tamar Damon MD 04/23/2024 03:47 PM EDT RP Dictated By: Tamar Damon MD Signed By: <Electronically signed by Tamar Damon MD in OV> 04/23/24 1547 Patient: Suzy Topete MR#: [id number] : 1985 Acct:[id number] Age/Sex: 39 / F ADM Date: 04/16/24 Loc: HO.US Attending Dr: Mary Renner CNM Ordering Physician: Mary Renner CNM Date of Service: 04/16/24 Procedure(s): US pelvic and transvaginal Accession Number(s): [id number] cc: Xavier Dillard MD; Mary Renner CNM~ EXAMINATION: US PELVIS CLINICAL INFORMATION: Postcoital bleeding, pelvic pain, currently menstruating, last menstrual period yesterday. COMPARISON: None available. TECHNIQUE: Ultrasound of the pelvis is performed using both transabdominal and transvaginal transducers along with Doppler. Transvaginal imaging is performed due to inadequate visualization transabdominally. FINDINGS: The uterus is anteverted and measures 9.9 x 5.3 x 5.5 cm. 1.5 x 1.6 x 1.4 cm and 0.7 x 0.7 x 0.5 cm uterine masses are characteristic of fibroids. No significant free fluid. Endometrial thickness is 9 mm. Right ovary measures 2.4 x 2.0 x 1.4 cm, volume 3.5 mL. Left ovary measures 1.9 x 1.2 x 2.1 cm, volume 2.5 mL. Bilateral ovaries are unremarkable. US/US pelvic and transvaginal IMPRESSION: Uterine masses characteristic of fibroids. Endometrial thickness is 9 mm. Electronically signed by: Tamar Damon MD 04/23/2024 03:47 PM EDT Dictated By: Tamar Damon MD Signed By: <Electronically signed by Tamar Damon MD in OV> 04/23/24 1547 DD/ 1119 TD/TT: 04/16/24 113 Life Enrichment Specialist: DD/ 18 TD/TT: 04/16/24 1132 Life Enrichment Specialist: Reviewed the positive trich (w BV) And her negative Pap smear. Assessment & Plan Assessment & Plan (1) Trichomoniasis: Comment: will be treated and counseled 04/09/24./she and her partner both treated safe sex practices confirmed./test of cure 05/08/24 Code(s): A59.9 - Trichomoniasis, unspecified Category: Medical (2) Possible exposure to STD: Code(s): Z20.2 - Contact with and (suspected) exposure to infections with a predominantly sexual mode of transmission Category: Medical (3) Bleeding after intercourse: Comment: Has resolved since treatment for the trich. Code(s): N93.0 - Postcoital and contact bleeding Category: Medical (4) Pelvic pain: Comment: Periodic random sharp severe pelvic pain, last time four months ago Code(s): R10.2 - Pelvic and perineal pain Category: Medical (5) Screening for cervical cancer: Comment: 04/08/2024 Pap is negative with negative HPV; trich was identified on the Pap as well as the testing. Code(s): Z12.4 - Encounter for screening for malignant neoplasm of cervix Category: Medical (6) Patient desires : Comment: Has appointment at [facility] next month. Code(s): Z31.9 - Encounter for procreative management, unspecified Category: Medical Plan Reviewed all of her labs reviewed the Pap reviewed the pelvic ultrasound which shows to tiny fibroids 1 1-1/2 cm in 1.7 cm. Reviewed all of the findings in detail test of cure was done today at this visit for trichomoniasis as well as testing for other STIs. She and her partner both took the medication and they threw out all their sex toys and bought new ones. She will check the portal tomorrow for the results. They have an appointment together at [facility] on the and they are planning a together using her partner's donor egg and she plans to be the carrier. I did review signs and symptoms of ovulation to start reviewing when though if her partner is going to be donating the egg, that may be less important, and they will receive necessary Education about that there. Coding Level of Care Code Est Pt Level 3 (56902) Diagnoses Trichomoniasis A59.9 Possible exposure to STD Z20.2 Bleeding after intercourse N93.0 Pelvic pain R10.2 Screening for cervical cancer Z12.4 Patient desires Z31.9
[2024-05-08 11:33] VITALS: BP 101/72; BMI 30.2
== END 2024-05-08 12:16 | disposition home or self-care (01) ==
PROVIDERS: PCP Family Medicine; Visit Provider Advanced Practice Midwife
DX: A59.9 Trichomoniasis, unspecified (principal); N93.0 Postcoital and contact bleeding; R10.2 Pelvic and perineal pain; Z20.2 Contact with and (suspected) exposure to infections with a predominantly sexual mode of transmission; Z12.4 Encounter for screening for malignant neoplasm of cervix; Z31.9 Encounter for procreative management, unspecified
CPT/HCPCS: 99213

== ENCOUNTER 2024-05-08 11:25 | Outpatient (REF) | payer OTHER, SELFPAY ==
[2024-05-09 12:23] LABS: CT PCR NOT DETECTED (Not Detect.); NG PCR NOT DETECTED (Not Detect.)
[2024-05-09 14:25] LABS: Bacterial Vaginosis PCR NEGATIVE (Negative); Candida Group PCR NOT DETECTED (Not Detect); Candida glab krusei PCR NOT DETECTED (Not Detect); Trichomonas vaginalis PCR NOT DETECTED (Not Detect)
== END 2024-05-08 11:26 | disposition home or self-care (01) ==
LOC: HO.LNP 11:25
PROVIDERS: PCP Family Medicine; Visit Provider Advanced Practice Midwife
DX: A59.9 Trichomoniasis, unspecified (principal); Z20.2 Contact with and (suspected) exposure to infections with a predominantly sexual mode of transmission; N93.0 Postcoital and contact bleeding; R10.2 Pelvic and perineal pain; Z31.9 Encounter for procreative management, unspecified
CPT/HCPCS: 0352U; 87491; 87591; 99212

== ENCOUNTER 2024-05-09 08:03 | Outpatient (AMB) | payer OTHER, SELFPAY ==
[2024-05-09 08:13] VITALS: BP 132/84; PULSE 80; O2SAT 100; BMI 31.4
--- NOTE | 2024-05-09 08:13 | MHC.OFFVIS ---
Vital Signs 05/09/24 08:13 Height 5 ft 4 in Weight 183 lb BMI 31.4 BP 132/84 Blood Pressure Location Rt brachial Position Sitting Pulse 80 Pulse Source Pulse Oximeter Pulse Oximetry (%) 100 Oxygen Delivery Method Room Air Intake Visit Reasons: GERD management Intake Note: Suzy presents in office today for a scheduled initial assessment. CC; Pt is being evaluated for GERD management. Pt reports that they have had GERD for years; however, they have noticed that it has been getting progressively worse over the course of the last few months. Pt has attempted treatment with multiple OTC treatments, however, the only medication that has provided any relief to this point has been OTC nexium. Pt denies any previous hx of EGD. Animal Ride Attendant Required: No Allergies lisinopril Allergy (Intermediate, Verified 04/08/24 10:56) Facial Swelling povidone-iodine [From Betadine] Allergy (Intermediate, Verified 05/09/24 08:14) Itching HPI HPI GERD management: Details: 39-year-old female with past medical history of hypertension, hypercholesteremia is here today for initial consultation. Patient reports that for the past been having trouble with acid reflux. Patient does not matter what she eats has epigastric pain postprandially and sometimes without even any food triggers. Patient denies any nausea or vomiting. Denies any dyspepsia, dysphagia or odynophagia. Patient denies any nausea or vomiting. Patient reports occasional postprandial abdominal bloating. Occasional constipation, however patient uses [id number] supplements to help her move her bowels. Currently patient is taking Nexium. Tried in the past Tums without affect. Patient takes Nexium 20 mg on as-needed basis. Symptoms of acid reflux once or twice a day. [facility] Medical History Migraines Fatty liver Hypertension Surgical History H/O abdominoplasty Social History Household Members: Spouse and Children Caregiver staying overnight: No Housing: House Are you a primary insurance healthcare representative to a significant other at home: No Do you presently have visiting nurse or other home services: No 75 years or older and lives alone: No Alcohol intake: never Patient Tobacco Use Status: Never used Tobacco e-Cigarette/Vaping Use: Never Used service: Yes ([employer] ) Current occupational status: employed Sexual orientation: Straight/Heterosexual Gender identity: Female Cognitive needs: No Hearing needs: No Vision needs: No Female Reproductive History Menstrual Age of Menarche: 15 Review of Systems Const Denies weight gain and Denies weight loss ENT Reports no additional complaints, Denies dysphagia and Denies odynophagia Card Reports no additional complaints Resp Reports no additional complaints GI Denies abdominal pain, Denies belching, Denies melena, Denies bloating, Denies change in bowel habits, Reports constipation (Occasional), Denies dysphagia, Denies excessive flatus, Denies dyspepsia, Reports heartburn, Denies diarrhea, Denies loose stools, Denies nausea, Denies odynophagia and Denies vomiting Reports no additional complaints Musc Reports no additional complaints Neuro Reports no additional complaints Psych Reports no additional complaints Endo Reports no additional complaints Physical Exam Vital Signs: Last Vital Signs Pulse 80 05/09/24 08:13 BP 132/84 05/09/24 08:13 Pulse Ox 100 05/09/24 08:13 Oxygen Delivery Method Room Air 05/09/24 08:13 BMI result Body Mass Index 31.4 Const General: healthy appearing and no acute distress Nutritional Appearance: obese Orientation/consciousness: patient oriented x3 Resp Effort & Inspection: normal respiratory effort, able to speak in complete sentences, no tracheal deviation and symmetric chest movement Auscultation: clear to auscultation bilaterally Cardio Rate: regular rate GI Inspection: Yes normal to inspection, No distended and Yes obesity Palpation (GI): Soft to palpation, not firm, nontender and No hepatosplenomegaly present Auscultation: normal bowel sounds General: Yes no CVA tenderness Back/Spine/Pelvis Back: no CVA tenderness Skin General skin exam: elasticity normal, turgor normal and dry skin Neuro General: patient oriented x3 Psych Appearance: grossly normal Mental Status: mental status grossly normal Assessment & Plan Assessment & Plan (1) GERD (gastroesophageal reflux disease): Code(s): K21.9 - Gastro-esophageal reflux disease without esophagitis Category: Medical Qualifiers: Esophagitis presence: esophagitis presence not specified Qualified Code(s): K21.9 - Gastro-esophageal reflux disease without esophagitis (2) Postprandial epigastric pain: Code(s): R10.13 - Epigastric pain Plan Will check transglutaminase, upper GI series. Avoid dietary triggers and late night snacking. Staying upright for minimum 3 hours after meals discussed with patient. Will check for H pylori. Patient will return to the office in 1 week for H pylori testing. Will treat empirically positive. Patient will follow-up in 3 months, sooner on as needed basis. Patient is agreeable to current plan of care and verbalizes understanding of instructions. She was given the opportunity to questions and all questions answered. Thank you for allowing me to participate in her care Orders: Orders Transglutaminase Ab IgG Today R10.9 - Unspecified abdominal pain Transglutaminase IgA Today R10.9 - Unspecified abdominal pain FL upper GI series Today K21.9 - Gastro-esophageal reflux disease without esophagitis H Pylori Breath Test Today K21.9 - Gastro-esophageal reflux disease without esophagitis Medications: New famotidine (Pepcid) 20 mg PO DAILY 30 tabs 3RF K21.9 - Gastro-esophageal reflux disease without esophagitis Coding Level of Care Code New Pt Level 3 (33083) Diagnoses Gastroesophageal reflux disease, unspecified whether esophagitis present K21.9 Esophagitis presence: esophagitis presence not specified Postprandial epigastric pain R10.13 Time Spent (min) 40 Comment 30 minutes spent with patient and additional 10 spent reviewing her records
== END 2024-05-09 08:46 | disposition home or self-care (01) ==
PROVIDERS: PCP Family Medicine; Visit Provider Nurse Practitioner Family
DX: K21.9 Gastro-esophageal reflux disease without esophagitis (principal); R10.13 Epigastric pain
CPT/HCPCS: 99203

== ENCOUNTER → 2024-05-09 08:03 | Outpatient (BNVA) | payer OTHER, SELFPAY | PROVIDERS: PCP Family Medicine; Visit Provider Nurse Practitioner Family | DX: K21.9 Gastro-esophageal reflux disease without esophagitis (principal); R10.13 Epigastric pain | CPT/HCPCS: 99202 ==

== ENCOUNTER 2024-05-23 08:21 | Outpatient (AMB) | payer OTHER, SELFPAY ==
--- NOTE | 2024-05-23 08:34 | AM.OFFVISNUR ---
Intake Visit Reasons: H. Pylori Allergies lisinopril Allergy (Intermediate, Verified 04/08/24 10:56) Facial Swelling povidone-iodine [From Betadine] Allergy (Intermediate, Verified 05/09/24 08:14) Itching Nursing Note Patient presents for collection of H Pylori breath test. Patient has been fasting for 1 hour (nothing to eat, drink, no chewing gum or smoking) has not taken any antacid medication for at least 2 weeks and has no allergies to artificial sweeteners.?? Assessment & Plan Assessment & Plan (1) GERD (gastroesophageal reflux disease): Code(s): K21.9 - Gastro-esophageal reflux disease without esophagitis Category: Medical Qualifiers: Esophagitis presence: esophagitis presence not specified Qualified Code(s): K21.9 - Gastro-esophageal reflux disease without esophagitis Plan Patient presents for collection of H Pylori breath test. Patient has been fasting for 1 hour (nothing to eat, drink, no chewing gum or smoking) has not taken any antacid medication for at least 2 weeks and has no allergies to artificial sweeteners.???This test checks for an overgrowth of bacteria in your stomach. We all have bacteria but some may have more than others. It is treatable. if the test comes back negative there is nothing else to do. If the test result is positive we will treat you with 2 antibiotics and a medication to decrease the acid in your stomach (PPI) for 2 weeks. Two weeks after you have completed the treatment we will retest you to make sure the overgrowth has resolved. Patient Instructions: Process for specimen collection and reason for testing was explained to the patient. Specimen collection. Patient instructed to take a deep breath and then exhale into the blue bag, filling it up as much as possible. Patient instructed to drink a mixture of water and the artificial sweetener with a straw. A 15 minute wait period was observed. Patient instructed to take a deep breath and then exhale into the pink bag, filling it up as much as possible.??
== END 2024-05-23 08:49 | disposition home or self-care (01) ==
PROVIDERS: PCP Family Medicine; Visit Provider Nurse Practitioner Family
DX: K21.9 Gastro-esophageal reflux disease without esophagitis (principal)

== ENCOUNTER 2024-05-23 08:21 | Outpatient (REF) | payer OTHER, SELFPAY ==
[2024-05-25 10:58] LABS: H Pylori Breath Test Negative (Negative)
== END 2024-05-23 08:22 | disposition home or self-care (01) ==
LOC: HO.LNP 08:21
PROVIDERS: PCP Family Medicine; Visit Provider Nurse Practitioner Family
DX: K21.9 Gastro-esophageal reflux disease without esophagitis (principal)
CPT/HCPCS: 83013; 99211

== ENCOUNTER 2024-05-26 13:33 | Outpatient (AMB) | payer OTHER, SELFPAY ==
--- NOTE | 2024-05-26 14:02 | A.OFFPC_ITS ---
Vital Signs 05/26/24 14:05 Height 5 ft 4 in Weight 175 lb BMI 30.0 BP 118/68 Blood Pressure Location Lt brachial Position Sitting Respiration 14 Pulse 80 Pulse Source Pulse Oximeter Pulse Oximetry (%) 100 Oxygen Delivery Method Room Air Intake Visit Reasons: f/u hypercholesterolemia Intake Note: follow up Allergies lisinopril Allergy (Intermediate, Verified 05/26/24 14:13) Facial Swelling povidone-iodine [From Betadine] Allergy (Intermediate, Verified 05/26/24 14:13) Itching Medication List - Last Reconciled 05/26/24 by Kajal Joy, [facility]- ergotamine-caffeine 1-100 mg take 2 tablets at onset of headache; if no relief, may repeat 1 tablet after at least 2 hrs; max = 3 tabs/24 hrs PO esomeprazole magnesium 20 mg PO DAILY 30 days famotidine (Pepcid) 20 mg PO DAILY losartan-hydrochlorothiazide 50-12.5 mg 1 tab PO BID 90 days Tobacco use date assessed: 02/26/24 Dental Screening Dental Screen Date: 10/11/23 HPI HPI Comments History of Present Illness Details 39 y/o F with migraines, HTN, GERD, fami ly hx of breast ca, fibrocystic breasts, hyperlipidemia Specialists: GI Here today to follow up on hyperlipidemia as well as the results of her breast imaging. Mammo and US 05/01/2024 Birads 3 - 6 mo fu Discuss this with her today. Offered a referral to the breast specialist for further management and monitoring and for genetic testing. She is interested in pursuing this. In regards to her cholesterol, Labs 10/2023 LDL 123 otherwise WNL. She states that she Was supposed to start on medication, nothing was sent. Therefore she has not been on any medication. She denies any lifestyle changes or modifications. Her weight is down 1 lb since last office visit. Exam Awake alert oriented no acute distress Regular rate rhythm Lung sounds clear to auscultation bilat Plan Repeat fasting lipid profile, once resulted we will send a message on the portal. At this time do not feel a statin is needed. 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 Declined flu today. RTO in 6 months for routine f/u with PCP, sooner PRN This note is constructed using voice recognition software. While every effort has been made to ensure accuracy in commodity industry analyst, still errors may have been included Sometimes, these errors may affect the content or meaning of the given sentence . Total time spent caring for the patient today was 30 minutes. This includes time spent before the visit reviewing the chart, time spent during the visit, and time spent after the visit on documentation PFSH Medical History Migraines Fatty liver Hypertension Surgical History H/O abdominoplasty Social History Household Members: Spouse and Children Caregiver staying overnight: No Housing: House Are you a primary care technician to a significant other at home: No Do you presently have visiting nurse or other home services: No 75 years or older and lives alone: No Alcohol intake: never Patient Tobacco Use Status: Never used Tobacco e-Cigarette/Vaping Use: Never Used service: Yes ([employer] ) Current occupational status: employed Sexual orientation: Straight/Heterosexual Gender identity: Female Cognitive needs: No Hearing needs: No Vision needs: No Female Reproductive History Menstrual Age of Menarche: 15 Questionnaire Thrive Questionnaire Date Thrive assessed: 10/11/23 DONAVAN-7 AMB Questionnaire DONAVAN-7 Date DONAVAN - 7 assessed: 10/11/23 Source: Developed by Drs. Lamont Olguin, Johanna Soto, Tang Ríos and colleagues, with an educational jewel from [employer]. Physical exam (Primary Care) Vital Signs: Last Vital Signs Pulse 80 05/26/24 14:05 Resp 14 05/26/24 14:05 BP 118/68 05/26/24 14:05 Pulse Ox 100 05/26/24 14:05 Oxygen Delivery Method Room Air 05/26/24 14:05 BMI result Body Mass Index 30.0 Tobacco/Smoking Status: Tobacco use Status Tobacco use date assessed 02/26/24 05/26/24 14:04 Patient Tobacco Use Status Never used Tobacco 05/26/24 14:04 e-Cigarette/Vaping Use Never Used 05/26/24 14:04 Thrive Assessment: Date of Thrive Assessment Date Thrive assessed 10/11/23 05/26/24 14:04 Coding Level of Care Code Est Pt Level 4 (62848) Complex EM visit Add On G2211 Diagnoses Hypercholesterolemia E78.00 Family history of breast cancer Z80.3 Fibrocystic breast disease (FCBD), unspecified laterality N60.19 Laterality: unspecified laterality Influenza vaccination declined Z28.21 Assessment & Plan Assessment & Plan (1) Hypercholesterolemia: Code(s): E78.00 - Pure hypercholesterolemia, unspecified Category: Medical Plan: . (2) Family history of breast cancer: Code(s): Z80.3 - Family history of malignant neoplasm of breast Category: Medical Plan: . (3) Fibrocystic breast: Code(s): N60.19 - Diffuse cystic mastopathy of unspecified breast Category: Medical Qualifiers: Laterality: unspecified laterality Qualified Code(s): N60.19 - Diffuse cystic mastopathy of unspecified breast Plan: . (4) Influenza vaccination declined: Code(s): Z28.21 - Immunization not carried out because of patient refusal Plan: . Orders: Orders Lipid Panel Today E78.00 - Pure hypercholesterolemia, unspecified Referrals Breast Surgery Referral N60.19 - Diffuse cystic mastopathy of unspecified breast, Z12.31 - Encounter for screening mammogram for malignant neoplasm of breast, Z80.3 - Family history of malignant neoplasm of breast
[2024-05-26 14:05] VITALS: BP 118/68; PULSE 80; RESP 14; O2SAT 100
== END 2024-05-26 14:24 | disposition home or self-care (01) ==
PROVIDERS: PCP Family Medicine; Visit Provider Nurse Practitioner Family
DX: E78.00 Pure hypercholesterolemia, unspecified (principal); Z80.3 Family history of malignant neoplasm of breast; N60.19 Diffuse cystic mastopathy of unspecified breast; Z28.21 Immunization not carried out because of patient refusal

== ENCOUNTER → 2024-05-26 13:33 | Outpatient (BNVA) | payer OTHER, SELFPAY | PROVIDERS: PCP Family Medicine; Visit Provider Nurse Practitioner Family | DX: E78.00 Pure hypercholesterolemia, unspecified (principal); N60.19 Diffuse cystic mastopathy of unspecified breast; Z80.3 Family history of malignant neoplasm of breast | CPT/HCPCS: 99212 ==

== ENCOUNTER 2024-05-30 08:30 | Outpatient (REF) | payer OTHER, SELFPAY ==
[2024-05-30 11:53] LABS: Alanine Aminotransferase 50 U/L (0-31); Albumin Level 4.8 g/dL (3.5-5.0); Alkaline Phosphatase 77 U/L (39-117); Anion Gap 13 (12-20); Aspartate Amino Transferase 32 U/L (5-31); Bilirubin Total 0.8 mg/dL (0.0-1.0); Blood Urea Nitrogen 9 mg/dL (9-16); Carbon Dioxide 27 mmol/L (22-29); Chloride 103 mmol/L (96-108); Cholesterol 188 mg/dL (<200); Estimated Glomerular Filt Rate > 60; Glucose Fasting 83 mg/dL (60-99); HDL Cholesterol 47 mg/dL (>40); LDL Cholesterol Calculated 123 mg/dL (<100); Potassium 3.5 mmol/L (3.3-5.1); Sodium 139 mmol/L (135-145); Total Protein 8.6 g/dL (6.5-8.0); Triglycerides 94 mg/dL (<150)
[2024-06-03 07:53] LABS: Transglutaminase Ab IgG <1.0 U/mL; Transglutaminase IgA <1.0 U/mL
== END 2024-05-30 08:31 | disposition home or self-care (01) ==
LOC: HO.WFDLDS 08:30
PROVIDERS: Referring Provider Nurse Practitioner Family; Visit Provider Family Medicine
DX: Z00.00 Encounter for general adult medical examination without abnormal findings (principal); E78.00 Pure hypercholesterolemia, unspecified; R10.9 Unspecified abdominal pain
CPT/HCPCS: 36415; 80053; 80061; 86364

== ENCOUNTER 2024-06-26 09:58 | Outpatient (AMB) | payer OTHER, SELFPAY ==
[2024-06-26 10:02] VITALS: BP 121/76; PULSE 88; BMI 32.0
--- NOTE | 2024-06-26 10:02 | A.OFFVIS_ITS ---
Vital Signs 06/26/24 10:02 Height 5 ft 4 in Weight 186 lb 8 oz BMI 32.0 BP 121/76 Blood Pressure Location Rt brachial Position Sitting Pulse 88 Intake Visit Reasons: Family history of malignant neoplasm of breast Intake Note: This patient presents for family history of malignant neoplasm of breast. Pt c/o; reports no breast complaints, reports maternal grandmother had breast cancer. Pharmacy Benefits Coordinator Required: No Accompanied by: Self / Same As Patient Allergies lisinopril Allergy (Intermediate, Verified 06/26/24 10:11) Facial Swelling povidone-iodine [From Betadine] Allergy (Intermediate, Verified 06/26/24 10:11) Itching Medication List - Last Reconciled 06/26/24 by Rodriguez Salguero MD ergotamine-caffeine 1-100 mg take 2 tablets at onset of headache; if no relief, may repeat 1 tablet after at least 2 hrs; max = 3 tabs/24 hrs PO esomeprazole magnesium 20 mg PO DAILY 30 days famotidine (Pepcid) 20 mg PO DAILY losartan-hydrochlorothiazide 50-12.5 mg 1 tab PO BID 90 days HPI HPI Family history of malignant neoplasm of breast: Details: [age] year old female referred for a family history of breast cancer. She describes a grandmother maternal side with breast cancer in her 60s. She had a mammogram last April,. Findings were benign but in view of some calcifications noted on the left breast along with an implant, follow-up mammogram has been recommended in 6 months. She denies any palpable breast mass. She does have a history of implants on both breast. Her menarche was at the age of 15. Her 1st was the age of 22. She says that she had been 3 times. She also says that she had a lump removed from the right breast when she was 19 and this was benign. [facility] Medical History Migraines Fatty liver Hypertension Surgical History H/O abdominoplasty Family History Maternal Grandmother Breast cancer Social History Household Members: Spouse and Children Caregiver staying overnight: No Housing: House Are you a primary in home caregiver to a significant other at home: No Do you presently have visiting nurse or other home services: No 75 years or older and lives alone: No Alcohol intake: never Patient Tobacco Use Status: Never used Tobacco e-Cigarette/Vaping Use: Never Used service: Yes ([employer] ) Current occupational status: employed Sexual orientation: Straight/Heterosexual Gender identity: Female Cognitive needs: No Hearing needs: No Vision needs: No Female Reproductive History Menstrual Age of Menarche: 15 Total pregnancies: 3 Full term: 3 Review of Systems Const Denies chills and Denies fever(s) Card Denies chest pain, Denies dyspnea and Denies dyspnea on exertion Resp Denies cough, Denies dyspnea and Denies dyspnea on exertion GI Denies hematochezia and Denies change in bowel habits Denies hematuria Musc Denies back pain and Denies limited range of motion Neuro Denies focal weakness and Denies convulsions Psych Denies depression and Denies mood swings Physical Exam Const General: comfortable and no acute distress Orientation/consciousness: patient oriented x3 Neck Neck: Yes no lymphadenopathy Chest Other: She no palpable breast masses, no axillary lymphadenopathy She has surgical scars on both breasts for augmentation with implants Resp Auscultation: clear to auscultation bilaterally Cardio Rhythm: regular rhythm GI Palpation (GI): Soft to palpation, nontender and no guarding Neuro General: patient oriented x3 Assessment & Plan Assessment & Plan (1) Family history of breast cancer: Code(s): Z80.3 - Family history of malignant neoplasm of breast Category: Medical Plan She had some calcifications of the left breast on mammogram from April, and she has breast implants so a follow-up mammogram has been recommended in 6 months. I emphasized this to her She will not qualify for genetic testing as her grandmother was in her 60s when she was diagnosed to have breast cancer and there were no other family members with cancer I can see her in the office on a p.r.n. basis. Coding Level of Care Code New Pt Level 3 (00789) Diagnoses Family history of breast cancer Z80.3
== END 2024-06-26 10:18 | disposition home or self-care (01) ==
LOC: HO.HGS 09:59
PROVIDERS: PCP Family Medicine; Visit Provider Surgery
DX: Z80.3 Family history of malignant neoplasm of breast (principal)
CPT/HCPCS: 99203

== ENCOUNTER 2024-06-26 09:58 | Outpatient (REF) | payer OTHER, SELFPAY ==
[2024-06-26 14:23] LABS: Appearance Urine Clear; Color Urine Yellow; Glucose Urine UA Negative (Negative); Leukocyte Esterase Urine Moderate (2+) (Negative); Nitrite Urine Negative (Negative); UMIC TRIGGER UACC YES; Urine Blood Negative (Negative); Urine Ketones Negative (Negative); Urine Protein Negative (Neg-Trace)
[2024-06-26 14:42] LABS: Bacteria Urine 1+ (None Seen); Hyaline Casts Urine 0-2 /LPF (0-2); RBC Urine 0-2 /HPF (0-2); Squamous Epithelial Cell Urine 0-2 /HPF (0-2); UACC Culture Trigger YES; WBC Urine >50 /HPF (0-5)
== END 2024-06-26 09:59 | disposition home or self-care (01) ==
LOC: HO.LAB 09:58
PROVIDERS: Nurse Practitioner Family; PCP Family Medicine; Visit Provider Surgery
DX: N39.0 Urinary tract infection, site not specified (principal); B96.20 Unspecified Escherichia coli [E. coli] as the cause of diseases classified elsewhere; Z80.3 Family history of malignant neoplasm of breast
CPT/HCPCS: 81001; 81003; 87086; 87088; 87186; 99202; 99212

== ENCOUNTER 2024-06-26 10:52 | Outpatient (AMB) | payer OTHER, SELFPAY ==
--- NOTE | 2024-06-26 10:59 | AM.OFFWIN_ITS ---
Intake Vital Signs 06/26/24 11:03 Height 5 ft 4 in Weight 186 lb 8 oz BMI 32.0 BP 120/72 Blood Pressure Location Lt brachial Position Sitting Respiration 16 Pulse 96 Pulse Source Pulse Oximeter Temp 98.2 F Temp Source Oral Pulse Oximetry (%) 98 Oxygen Delivery Method Room Air Intake Visit Reasons: est/possible uti Intake Note: patient here c/o possible UTI Patient Tobacco Use Status: Never used Tobacco Postdoctoral Scholar Required: No Is last menstrual period known: Yes Last menstrual period: 06/13/24 Post menopausal: No Patient : No Allergies lisinopril Allergy (Intermediate, Verified 06/26/24 11:15) Facial Swelling povidone-iodine [From Betadine] Allergy (Intermediate, Verified 06/26/24 11:15) Itching Medication List - Last Reconciled 06/26/24 by Reji Carrera CNP ergotamine-caffeine 1-100 mg take 2 tablets at onset of headache; if no relief, may repeat 1 tablet after at least 2 hrs; max = 3 tabs/24 hrs PO esomeprazole magnesium 20 mg PO DAILY 30 days famotidine (Pepcid) 20 mg PO DAILY losartan-hydrochlorothiazide 50-12.5 mg 1 tab PO BID 90 days Do you need a note to return to daycare/school/sports/work: No HPI HPI Comments History of Present Illness Details 39-year-old female presents with complai nts of urinary frequency and slight burning with urination for the past 2 days. She denies hematuria, discharge with urination, abdominal pain, fever, chills, body aches, fatigue, or weakness. She notes that she is sexually active, in a monogamous relationship, and has not concerns for STD. [facility] Medical History Migraines Fatty liver Hypertension Surgical History H/O abdominoplasty Family History Maternal Grandmother Breast cancer Social History Household Members: Spouse and Children Caregiver staying overnight: No Housing: House Are you a primary animal care giver to a significant other at home: No Do you presently have visiting nurse or other home services: No 75 years or older and lives alone: No Alcohol intake: never Patient Tobacco Use Status: Never used Tobacco e-Cigarette/Vaping Use: Never Used Patient : No service: Yes ([employer] ) Current occupational status: employed Sexual orientation: Straight/Heterosexual Gender identity: Female Cognitive needs: No Hearing needs: No Vision needs: No Female Reproductive History Menstrual Age of Menarche: 15 Date of last menstrual period: 06/13/24 Review of Systems Const Details: Denies chills, Denies fatigue, Denies fever(s), Denies headache(s) and Denies weakness Cardiac Denies chest pain, Denies claudication, Denies leg edema, Denies lightheadedness, Denies palpitations, Denies dyspnea, Denies dyspnea on exertion, Denies orthopnea and Denies other (Loss of consciousness) Resp Denies cough, Denies excessive phlegm production, Denies dyspnea, Denies dyspnea on exertion, Denies snoring and Denies wheezing Reports as per HPI Physical Exam Vital Signs: Last Vital Signs Temp 98.2 F 06/26/24 11:03 Pulse 96 06/26/24 11:03 Resp 16 06/26/24 11:03 BP 120/72 06/26/24 11:03 Pulse Ox 98 06/26/24 11:03 Oxygen Delivery Method Room Air 06/26/24 11:03 BMI result Body Mass Index 32.0 Const Other: General: comfortable and no acute distress Orientation/consciousness: patient oriented x3 Chest Chest palpation & inspection: normal inspection of the chest Resp Auscultation: clear to auscultation bilaterally Cardiac Palpation: normal PMI Heart sounds: S1 normal heart sound present, S2 normal heart sound present, no gallops, no murmur, no rubs No CVA tenderness Results AMB Urinalysis, Automated UA Leukoctes 2 Celena/uL Last Edit by Ana Mendoza MA on 06/26/24 11:39 UA Nitrite Negative Last Edit by Ana Mendoza MA on 06/26/24 11:39 UA Urobilinogen 0 mg/dL Last Edit by Ana Mendoza MA on 06/26/24 11:39 UA Protein 0 mg/dL Last Edit by Ana Mendoza MA on 06/26/24 11:39 UA pH 6.0 Last Edit by Ana Mendoza MA on 06/26/24 11:39 UA Blood 10 Joshua/uL Last Edit by Ana Mendoza MA on 06/26/24 11:39 UA Specific Severance 1.015 Last Edit by Ana Mendoza MA on 06/26/24 11:39 UA Ketone Negative Last Edit by Ana Mendoza MA on 06/26/24 11:39 UA Bilirubin 0 mg/dL Last Edit by Ana Mendoza MA on 06/26/24 11:39 UA Glucose 0 mg/dL Last Edit by Ana Mendoza MA on 06/26/24 11:39 Assessment & Plan Assessment & Plan (1) UTI (urinary tract infection): Code(s): N39.0 - Urinary tract infection, site not specified Plan: Patient reports urinary frequency and slight dysuria x2 days Urinalysis is positive for leukocytes and RBCs Macrobid ordered. Advised to take as prescribed. Instructed on the risks, benefits, potential adverse reactions of the medications Adequate hydration encouraged Will send urine sample to the lab for urinalysis and culture Follow-up with worsening or new symptoms Verbalized understanding and agreed with the treatment plan Orders: Orders AMB Urinalysis Automated Today Z13.9 - Encounter for screening, unspecified UA CC w/rflx Micro + Cult Today N39.0 - Urinary tract infection, site not specified Medications: New nitrofurantoin monohyd/m-cryst 100 mg (Macrobid) must administer with a meal/food 100 mg PO Q12H 5 days 10 caps 0RF Coding Level of Care Code Est Pt Level 3 (50076) Diagnoses UTI (urinary tract infection) N39.0
[2024-06-26 11:03] VITALS: BP 120/72; PULSE 96; RESP 16; TEMP 36.8; O2SAT 98; BMI 32.0
== END 2024-06-26 11:56 | disposition home or self-care (01) ==
PROVIDERS: PCP Family Medicine; Visit Provider Nurse Practitioner Family
DX: N39.0 Urinary tract infection, site not specified (principal); Z13.9 Encounter for screening, unspecified